=== PATIENT | male | born 1955 | race Caucasian/White ===

== ENCOUNTER 2022-05-13 17:34 | Inpatient (IN) ==
--- NOTE | 2022-05-13 18:22 | CT Scan Report ---
CT head/brain wo con CLINICAL HISTORY: ams Technique: Contiguous axial CT images of the head were acquired from the base of the skull to the [place] without intravenous contrast administration. Images were viewed in brain, subdural and bone [facility]. Automated dose lowering techniques and/or adjustment according to patient size were utilized for this exam. Comparison: None available at the time of this dictation. Findings: Areas of decreased attenuation are present in the periventricular and subcortical white matter bilate rally consistent with small vessel ischemic disease. Generalized cerebral volume loss with commensura te enlargement of the ventricles, sulci, and cisterns is also present. Asymmetric enlargement of the left lateral ventricle occipital horn. The white matter changes may represent focal encephalomalacia from prior infarct. Imaged portions of the paranasal sinuses and mastoid air cells are clear. The orbits appear normal. There are no acute fractures of the calvaria or scalp swelling. Impression: No acute intracranial hemorrhage, no evidence of acute territorial infarction or other acute intracra nial disease process. ACT 112: Negative or not required by law. Electronically signed by: Roc Leggett M.D. 05/13/2022 6:21 PM
[2022-05-13 18:25] LABS: Basophils # (auto) 0.07 K/uL (0-0.2); Eosinophils # (auto) 0.01 K/uL (0-0.50); Eosinophils % (auto) 0.1 %; Hematocrit (blood only) 47.4 % (42.0-52.0); Hemoglobin 16.3 g/dl (14.0-18.0); Immature Granulocytes # (auto) 0.04 K/uL (0.01-0.20); Immature Granulocytes % (auto) 0.6 %; Lymphocytes # (auto) 2.01 K/uL (1.2-3.4); Lymphocytes % (auto) 27.7 %; Mean Corpuscular Hemoglobin 33.3 pg (25.0-34.0); Mean Corpuscular Hgb Conc 34.4 g/dL (32.0-36.0); Mean Corpuscular Volume 96.7 fL (80.0-100.0); Mean Platelet Volume 10.6 fL (9.4-12.4); Monocytes # (auto) 0.57 K/uL (0.11-0.59); Monocytes % (auto) 7.9 %; Neutrophils # (auto) 4.55 K/uL (1.40-6.50); Neutrophils % (auto) 62.7 %; Platelet Count 203 K/uL (130-400); RDW Coefficient of Variation 12.2 % (11.5-14.5); RDW Standard Deviation 44.2 fL (36.4-46.3); White Blood Count 7.25 K/ul (4.8-10.8)
[2022-05-13 18:27] LABS: Base Excess VBG 3.8 mEq/L; HCO3 VBG 29 mmol/L; Oxygen Saturation VBG 65.2 %; PCO2 VBG 46 mmHg (38-50); PO2 VBG 40 mmHg; pH VBG 7.41 (7.36-7.41)
[2022-05-13 18:39] LABS: Acetaminophen < 3 ug/ml (10-30); Salicylate < 3.0 mg/dl (3.0-30)
--- NOTE | 2022-05-13 18:41 | XRay Report ---
XR chest 1V portable CLINICAL HISTORY: ams TECHNIQUE: Single frontal radiograph of the chest was obtained. Comparison: None available at the time of this dictation. FINDINGS: No lines and tubes are seen. The aorta is tortuous. The remainder of the cardiomediastinal silhouette is unremarkable. The lungs are clear. No evidence of pleural effusion or pneumothorax. IMPRESSION: No acute chest disease. ACT 112: Negative or not required by law. Electronically signed by: Roc Leggett M.D. 05/13/2022 6:39 PM
[2022-05-13 18:47] LABS: Alanine Aminotransferase 13 U/L (7-52); Albumin Level 4.6 gm/dl (3.4-5.0); Alkaline Phosphatase 63 U/L (34-104); Anion Gap 11 (3-11); Aspartate Aminotransferase 26 U/L (13-39); BUN Creatinine Ratio 16.3 (10-20); Bilirubin Direct 0.1 mg/dl (0-0.2); Bilirubin,Total 0.8 mg/dl (0.2-1.0); Blood Urea Nitrogen 17 mg/dl (6-23); Calcium 9.8 mg/dl (8.5-10.1); Carbon Dioxide 27 mmol/L (21-32); Chloride 100 mmol/L (98-107); Creatine Kinase 73 U/L (30-223); Est GFR (African American) 85.1 ml/min; Est GFR (Non-African American) 73.4 ml/min; Glucose 87 mg/dl (70-99(Fasting)); Lipase 17 U/L (11-82); Magnesium 2.5 mg/dl (1.7-2.4); Sodium 138 mmol/L (136-145); Total Protein 8.4 gm/dl (6.0-8.3)
[2022-05-13 18:52] LABS: Troponin I High Sensitivity 7.3 pg/ml (0-20)
[2022-05-13 18:56] LABS: INR 1.1 (0.9-1.1); Partial Thromboplastin Ratio 0.9; Partial Thromboplastin Time 25.7 Seconds (21.0-31.0); Prothrombin Time 11.2 Seconds (9.0-12.0)
[2022-05-13 19:46] LABS: Appearance Urine Clear (Clear); Bacteria Urine Automated Negative (Negative); Blood Urine Negative (Negative); Color Urine Dark Yellow; Glucose Urine UA Negative (Negative); Ketones Urine 2+ (Negative); Leukocyte Esterase Urine Negative (Negative); Nitrite Urine Negative (Negative); Protein Urine Trace (Negative); RBC Urine Automated 0-4 /hpf (0-4); Urobilinogen Urine Negative (Negative)
[2022-05-13 19:53] LABS: Bilirubin Urine 1+ (Negative)
[2022-05-13 19:57] LABS: Amphetamines+Metham, Urine Neg (Neg); Barbiturates, Urine Neg (Neg); Benzodiazepine, Urine Neg (Neg); Cocaine, Urine Neg (Neg); MDMA (Ecstacy), Urine Neg (Neg); Methadone, Urine Neg (Neg); Opiate, Urine Neg (Neg); Phencyclidine, Urine Neg (Neg)
--- NOTE | 2022-05-13 20:00 | Emergency Department Note ---
History of Present Illness General Chief complaint: Confusion Stated complaint: NOT LIKE HIMSELF Time Seen by Provider: 05/13/22 17:41 Source: friends History of Present Illness Provider complaint: Altered mental status 67-year-old male presents emergency department for altered mental status. Patient was brought in by his friend. The friend states he has not heard from him in the last week and a half but then went to go visit him today and the patient was acting altered. The friend at bedside states he does not know if he has any medical problems or takes any medications. No reported trauma. Friend states that the patient does not drink alcohol or do drugs. Home Medications Medication Instructions Recorded Confirmed Type No Known Home Medications 05/13/22 05/13/22 History Past Med/Surg History Social History Smoking Status: Former smoker Physical Exam Vital Signs Vital Signs - 24 hr 05/13/22 17:37 05/13/22 17:52 05/13/22 18:02 Temperature 36.4 C L Temperature Source Temporal Artery Scan Pulse Rate 91 H 81 Respiratory Rate 18 Respiratory Effort / Characteristics Non-Labored Respiratory Depth Normal Blood Pressure 180/105 H Blood Pressure [Right Arm] Blood Pressure Mean 130 Blood Pressure Mean [Right Arm] Pulse Oximetry 98 Oxygen Delivery Method Room Air Room Air Sepsis Recent Fever Within 48 Hours No Sepsis New/Unexplained Change in Mental Status No Sepsis Action Taken by Nursing No Action Required 05/13/22 18:03 Temperature Temperature Source Pulse Rate Respiratory Rate Respiratory Effort / Characteristics Respiratory Depth Blood Pressure Blood Pressure [Right Arm] 207/109 H Blood Pressure Mean Blood Pressure Mean [Right Arm] 141 Pulse Oximetry Oxygen Delivery Method Sepsis Recent Fever Within 48 Hours Sepsis New/Unexplained Change in Mental Status Sepsis Action Taken by Nursing Physical Exam GENERAL: Patient is alert but not oriented. HENT: Exam performed. - Head: Normocephalic and atraumatic. - Right Ear: External ear normal. No mastoid tenderness. - Left Ear: External ear normal. No mastoid tenderness. - Mouth/Throat: The oropharynx is clear and moist. No trismus in the jaw. No dental abscesses or uvula swelling. No oropharyngeal exudate or tonsillar abscesses. EYES: Conjunctivae and EOM are normal. Pupils are equal, round, and reactive to light. Right eye exhibits no discharge. Left eye exhibits no discharge. No scleral icterus. NECK: Normal range of motion. Neck supple. No JVD present. No spinous process tenderness present. No rigidity. No tracheal deviation and normal range of motion present. No Brudzinski's sign and no Kernig's sign noted. CV: Normal rate, regular rhythm, normal heart sounds and intact distal pulses. There is no peripheral edema. Palpable radial pulses bue. PULM/CHEST: Effort normal and breath sounds normal. No respiratory distress. No stridor. He has no wheezes. He has no rales. - Chest Wall: He exhibits no tenderness. ABD: The abdomen is soft. He has no distension. No mass is present. There is no tenderness. There is no rebound, no guarding MUSC/SKEL: Normal range of motion. There is no peripheral edema, tenderness or deformity. LYMPH: No cervical adenopathy. NEURO: He is alert but not oriented to person, place, and time. He has normal strength. No cranial nerve deficit or sensory deficit. Coordination and gait normal. GCS eye subscore is 4. GCS verbal subscore is 4. GCS motor subscore is 6. SKIN: Skin is warm and dry. He is not diaphoretic. Course Course 1741: The patient was evaluated in room A12A. A complete history and physical exam was performed Medical Decision Making Laboratory Data Attestation: I reviewed the patient's lab results. 05/13/22 17:58 05/13/22 17:58 Lab Results 05/13/22 05/13/22 05/13/22 Range/Units 17:49 17:58 17:58 WBC 7.25 (4.8-10.8) K/ul RBC 4.90 (4.70-6.10) M/uL Hgb 16.3 (14.0-18.0) g/dl Hct 47.4 (42.0-52.0) % MCV 96.7 (80.0-100.0) fL MCH 33.3 (25.0-34.0) pg MCHC 34.4 (32.0-36.0) g/dL RDW Std Deviation 44.2 (36.4-46.3) fL RDW Coeff of Mireya 12.2 (11.5-14.5) % Plt Count 203 (130-400) K/uL MPV 10.6 (9.4-12.4) fL Immature Gran % (Auto) 0.6 % Neut % (Auto) 62.7 % Lymph % (Auto) 27.7 % [place] % (Auto) 7.9 % Eos % (Auto) 0.1 % Baso % (Auto) 1.0 % Neut # (Auto) 4.55 (1.40-6.50) K/uL Lymph # (Auto) 2.01 (1.2-3.4) K/uL [place] # (Auto) 0.57 (0.11-0.59) K/uL Eos # (Auto) 0.01 (0-0.50) K/uL Baso # (Auto) 0.07 (0-0.2) K/uL Immature Gran # (Auto) 0.04 (0.01-0.20) K/uL PT 11.2 (9.0-12.0) Seconds INR 1.1 (0.9-1.1) APTT 25.7 (21.0-31.0) Seconds PTT Ratio 0.9 VBG pH (7.36-7.41) VBG pCO2 (38-50) mmHg VBG pO2 mmHg VBG HCO3 mmol/L VBG O2 Saturation % VBG Base Excess mEq/L Carboxyhemoglobin % THgb Sodium (136-145) mmol/L Potassium (3.5-5.1) mmol/L Chloride (98-107) mmol/L Carbon Dioxide (21-32) mmol/L Anion Gap (3-11) BUN (6-23) mg/dl Creatinine (0.6-1.4) mg/dl Est Cr Clr Drug Dosing Est GFR ( Amer) ml/min Est GFR (Non-Af Amer) ml/min BUN/Creatinine Ratio (10-20) Glucose (70-99(Fasting)) mg/dl POC Glucose 87 (70-99) mg/dl Calcium (8.5-10.1) mg/dl Magnesium (1.7-2.4) mg/dl Total Bilirubin (0.2-1.0) mg/dl Direct Bilirubin (0-0.2) mg/dl AST (13-39) U/L ALT (7-52) U/L Alkaline Phosphatase (34-104) U/L Ammonia (18-72) umol/L Total Creatine Kinase (30-223) U/L Troponin I High Sens (0-20) pg/ml Total Protein (6.0-8.3) gm/dl Albumin (3.4-5.0) gm/dl Lipase (11-82) U/L Urine Color Urine Appearance (Clear) Urine pH (4.5-7.5) Ur Specific Cook Sta (1.000-1.030) Urine Protein (Negative) Urine Glucose (UA) (Negative) Urine Ketones (Negative) Urine Blood (Negative) Urine Nitrite (Negative) Urine Bilirubin (Negative) Urine Urobilinogen (Negative) Ur Leukocyte Esterase (Negative) Urine WBC (Auto) (0-5) /hpf Urine RBC (Auto) (0-4) /hpf U Hyaline Cast (Auto) (0-5) /lpf U Epithel Cells (Auto) (0-5) /lpf Urine Bacteria (Auto) (Negative) Salicylates (3.0-30) mg/dl Urine Opiates Screen (Neg) Ur Methadone, Qual (Neg) Acetaminophen (10-30) ug/ml Urine Barbiturates (Neg) Ur Phencyclidine (PCP) (Neg) U Amphetamin/Meth Scrn (Neg) MDMA (Ecstasy) Screen (Neg) U Benzodiazepines Scrn (Neg) Ur Cocaine Metabolite (Neg) U Marijuana (THC) Screen (Neg) Ethyl Alcohol mg/dL (<10.0) mg/dl SARS-CoV-2, RNA, NAAT (NEGATIVE) 05/13/22 05/13/22 05/13/22 Range/Units 17:58 17:58 17:58 WBC (4.8-10.8) K/ul RBC (4.70-6.10) M/uL Hgb (14.0-18.0) g/dl Hct (42.0-52.0) % MCV (80.0-100.0) fL MCH (25.0-34.0) pg MCHC (32.0-36.0) g/dL RDW Std Deviation (36.4-46.3) fL RDW Coeff of Mireya (11.5-14.5) % Plt Count (130-400) K/uL MPV (9.4-12.4) fL Immature Gran % (Auto) % Neut % (Auto) % Lymph % (Auto) % [place] % (Auto) % Eos % (Auto) % Baso % (Auto) % Neut # (Auto) (1.40-6.50) K/uL Lymph # (Auto) (1.2-3.4) K/uL [place] # (Auto) (0.11-0.59) K/uL Eos # (Auto) (0-0.50) K/uL Baso # (Auto) (0-0.2) K/uL Immature Gran # (Auto) (0.01-0.20) K/uL PT (9.0-12.0) Seconds INR (0.9-1.1) APTT (21.0-31.0) Seconds PTT Ratio VBG pH (7.36-7.41) VBG pCO2 (38-50) mmHg VBG pO2 mmHg VBG HCO3 mmol/L VBG O2 Saturation % VBG Base Excess mEq/L Carboxyhemoglobin % THgb Sodium 138 (136-145) mmol/L Potassium 4.0 (3.5-5.1) mmol/L Chloride 100 (98-107) mmol/L Carbon Dioxide 27 (21-32) mmol/L Anion Gap 11 (3-11) BUN 17 (6-23) mg/dl Creatinine 1.04 (0.6-1.4) mg/dl Est Cr Clr Drug Dosing Not Reportable Est GFR ( Amer) 85.1 ml/min Est GFR (Non-Af Amer) 73.4 ml/min BUN/Creatinine Ratio 16.3 (10-20) Glucose 87 (70-99(Fasting)) mg/dl POC Glucose (70-99) mg/dl Calcium 9.8 (8.5-10.1) mg/dl Magnesium 2.5 H (1.7-2.4) mg/dl Total Bilirubin 0.8 (0.2-1.0) mg/dl Direct Bilirubin 0.1 (0-0.2) mg/dl AST 26 (13-39) U/L ALT 13 (7-52) U/L Alkaline Phosphatase 63 (34-104) U/L Ammonia 28.0 (18-72) umol/L Total Creatine Kinase 73 (30-223) U/L Troponin I High Sens 7.3 (0-20) pg/ml Total Protein 8.4 H (6.0-8.3) gm/dl Albumin 4.6 (3.4-5.0) gm/dl Lipase 17 (11-82) U/L Urine Color Urine Appearance (Clear) Urine pH (4.5-7.5) Ur Specific Cook Sta (1.000-1.030) Urine Protein (Negative) Urine Glucose (UA) (Negative) Urine Ketones (Negative) Urine Blood (Negative) Urine Nitrite (Negative) Urine Bilirubin (Negative) Urine Urobilinogen (Negative) Ur Leukocyte Esterase (Negative) Urine WBC (Auto) (0-5) /hpf Urine RBC (Auto) (0-4) /hpf U Hyaline Cast (Auto) (0-5) /lpf U Epithel Cells (Auto) (0-5) /lpf Urine Bacteria (Auto) (Negative) Salicylates < 3.0 L (3.0-30) mg/dl Urine Opiates Screen (Neg) Ur Methadone, Qual (Neg) Acetaminophen < 3 L (10-30) ug/ml Urine Barbiturates (Neg) Ur Phencyclidine (PCP) (Neg) U Amphetamin/Meth Scrn (Neg) MDMA (Ecstasy) Screen (Neg) U Benzodiazepines Scrn (Neg) Ur Cocaine Metabolite (Neg) U Marijuana (THC) Screen (Neg) Ethyl Alcohol mg/dL (<10.0) mg/dl SARS-CoV-2, RNA, NAAT (NEGATIVE) 05/13/22 05/13/22 05/13/22 Range/Units 17:58 18:00 18:21 WBC (4.8-10.8) K/ul RBC (4.70-6.10) M/uL Hgb (14.0-18.0) g/dl Hct (42.0-52.0) % MCV (80.0-100.0) fL MCH (25.0-34.0) pg MCHC (32.0-36.0) g/dL RDW Std Deviation (36.4-46.3) fL RDW Coeff of Mireya (11.5-14.5) % Plt Count (130-400) K/uL MPV (9.4-12.4) fL Immature Gran % (Auto) % Neut % (Auto) % Lymph % (Auto) % [place] % (Auto) % Eos % (Auto) % Baso % (Auto) % Neut # (Auto) (1.40-6.50) K/uL Lymph # (Auto) (1.2-3.4) K/uL [place] # (Auto) (0.11-0.59) K/uL Eos # (Auto) (0-0.50) K/uL Baso # (Auto) (0-0.2) K/uL Immature Gran # (Auto) (0.01-0.20) K/uL PT (9.0-12.0) Seconds INR (0.9-1.1) APTT (21.0-31.0) Seconds PTT Ratio VBG pH 7.41 (7.36-7.41) VBG pCO2 46 (38-50) mmHg VBG pO2 40 mmHg VBG HCO3 29 mmol/L VBG O2 Saturation 65.2 % VBG Base Excess 3.8 mEq/L Carboxyhemoglobin % THgb Sodium (136-145) mmol/L Potassium (3.5-5.1) mmol/L Chloride (98-107) mmol/L Carbon Dioxide (21-32) mmol/L Anion Gap (3-11) BUN (6-23) mg/dl Creatinine (0.6-1.4) mg/dl Est Cr Clr Drug Dosing Est GFR ( Amer) ml/min Est GFR (Non-Af Amer) ml/min BUN/Creatinine Ratio (10-20) Glucose (70-99(Fasting)) mg/dl POC Glucose (70-99) mg/dl Calcium (8.5-10.1) mg/dl Magnesium (1.7-2.4) mg/dl Total Bilirubin (0.2-1.0) mg/dl Direct Bilirubin (0-0.2) mg/dl AST (13-39) U/L ALT (7-52) U/L Alkaline Phosphatase (34-104) U/L Ammonia (18-72) umol/L Total Creatine Kinase (30-223) U/L Troponin I High Sens (0-20) pg/ml Total Protein (6.0-8.3) gm/dl Albumin (3.4-5.0) gm/dl Lipase (11-82) U/L Urine Color Urine Appearance (Clear) Urine pH (4.5-7.5) Ur Specific Cook Sta (1.000-1.030) Urine Protein (Negative) Urine Glucose (UA) (Negative) Urine Ketones (Negative) Urine Blood (Negative) Urine Nitrite (Negative) Urine Bilirubin (Negative) Urine Urobilinogen (Negative) Ur Leukocyte Esterase (Negative) Urine WBC (Auto) (0-5) /hpf Urine RBC (Auto) (0-4) /hpf U Hyaline Cast (Auto) (0-5) /lpf U Epithel Cells (Auto) (0-5) /lpf Urine Bacteria (Auto) (Negative) Salicylates (3.0-30) mg/dl Urine Opiates Screen (Neg) Ur Methadone, Qual (Neg) Acetaminophen (10-30) ug/ml Urine Barbiturates (Neg) Ur Phencyclidine (PCP) (Neg) U Amphetamin/Meth Scrn (Neg) MDMA (Ecstasy) Screen (Neg) U Benzodiazepines Scrn (Neg) Ur Cocaine Metabolite (Neg) U Marijuana (THC) Screen (Neg) Ethyl Alcohol mg/dL < 10.0 (<10.0) mg/dl SARS-CoV-2, RNA, NAAT NEGATIVE (NEGATIVE) 05/13/22 05/13/22 05/13/22 Range/Units 19:22 19:22 20:31 WBC (4.8-10.8) K/ul RBC (4.70-6.10) M/uL Hgb (14.0-18.0) g/dl Hct (42.0-52.0) % MCV (80.0-100.0) fL MCH (25.0-34.0) pg MCHC (32.0-36.0) g/dL RDW Std Deviation (36.4-46.3) fL RDW Coeff of Mireya (11.5-14.5) % Plt Count (130-400) K/uL MPV (9.4-12.4) fL Immature Gran % (Auto) % Neut % (Auto) % Lymph % (Auto) % [place] % (Auto) % Eos % (Auto) % Baso % (Auto) % Neut # (Auto) (1.40-6.50) K/uL Lymph # (Auto) (1.2-3.4) K/uL [place] # (Auto) (0.11-0.59) K/uL Eos # (Auto) (0-0.50) K/uL Baso # (Auto) (0-0.2) K/uL Immature Gran # (Auto) (0.01-0.20) K/uL PT (9.0-12.0) Seconds INR (0.9-1.1) APTT (21.0-31.0) Seconds PTT Ratio VBG pH (7.36-7.41) VBG pCO2 (38-50) mmHg VBG pO2 mmHg VBG HCO3 mmol/L VBG O2 Saturation % VBG Base Excess mEq/L Carboxyhemoglobin 2.6 % THgb Sodium (136-145) mmol/L Potassium (3.5-5.1) mmol/L Chloride (98-107) mmol/L Carbon Dioxide (21-32) mmol/L Anion Gap (3-11) BUN (6-23) mg/dl Creatinine (0.6-1.4) mg/dl Est Cr Clr Drug Dosing Est GFR ( Amer) ml/min Est GFR (Non-Af Amer) ml/min BUN/Creatinine Ratio (10-20) Glucose (70-99(Fasting)) mg/dl POC Glucose (70-99) mg/dl Calcium (8.5-10.1) mg/dl Magnesium (1.7-2.4) mg/dl Total Bilirubin (0.2-1.0) mg/dl Direct Bilirubin (0-0.2) mg/dl AST (13-39) U/L ALT (7-52) U/L Alkaline Phosphatase (34-104) U/L Ammonia (18-72) umol/L Total Creatine Kinase (30-223) U/L Troponin I High Sens (0-20) pg/ml Total Protein (6.0-8.3) gm/dl Albumin (3.4-5.0) gm/dl Lipase (11-82) U/L Urine Color Dark Yellow Urine Appearance Clear (Clear) Urine pH 5.0 (4.5-7.5) Ur Specific Cook Sta 1.030 (1.000-1.030) Urine Protein Trace H (Negative) Urine Glucose (UA) Negative (Negative) Urine Ketones 2+ H (Negative) Urine Blood Negative (Negative) Urine Nitrite Negative (Negative) Urine Bilirubin 1+ H (Negative) Urine Urobilinogen Negative (Negative) Ur Leukocyte Esterase Negative (Negative) Urine WBC (Auto) 1-5 (0-5) /hpf Urine RBC (Auto) 0-4 (0-4) /hpf U Hyaline Cast (Auto) 1-5 (0-5) /lpf U Epithel Cells (Auto) 10-20 H (0-5) /lpf Urine Bacteria (Auto) Negative (Negative) Salicylates (3.0-30) mg/dl Urine Opiates Screen Neg (Neg) Ur Methadone, Qual Neg (Neg) Acetaminophen (10-30) ug/ml Urine Barbiturates Neg (Neg) Ur Phencyclidine (PCP) Neg (Neg) U Amphetamin/Meth Scrn Neg (Neg) MDMA (Ecstasy) Screen Neg (Neg) U Benzodiazepines Scrn Neg (Neg) Ur Cocaine Metabolite Neg (Neg) U Marijuana (THC) Screen Neg (Neg) Ethyl Alcohol mg/dL (<10.0) mg/dl SARS-CoV-2, RNA, NAAT (NEGATIVE) Imaging Data Attestation: I personally reviewed and interpreted this imaging study as follows: My Impression: CT head: No [facility] Radiologist's Impression: Chest X-Ray 05/13/22 17:45 XR chest 1V portable CLINICAL HISTORY: ams TECHNIQUE: Single frontal radiograph of the chest was obtained. Comparison: None available at the time of this dictation. FINDINGS: No lines and tubes are seen. The aorta is tortuous. The remainder of the cardiom ediastinal silhouette is unremarkable. The lungs are clear. No evidence of pleural effusion or pneumothorax. IMPRESSION: No acute chest disease. ACT 112: Negative or not required by law. Electronically signed by: Roc Leggett M.D. 05/13/2022 6:[address] 05/13/22 17:45 CT head/brain wo con CLINICAL HISTORY: ams Technique: Contiguous axial CT images of the head were acquired from the base of the skull to the vertex without intravenous contrast administration. Images were viewed in brain, subdural and bone windows. Automated dose lowering techniques and/or adjustment according to patient size were utilized for this exam. Comparison: None available at the time of this dictation. Findings: Areas of decreased attenuation are present in the periventricular and subco rtical white matter bilaterally consistent with small vessel ischemic disease. Generalized cerebral volume loss with commensurate enlargement of the ventricles, sulci, and cisterns is also present. Asymmetric enlargement of the left lateral ventricle occipital horn. The white matter changes may represent focal encephalomalacia from prior infarct. Imaged portions of the paranasal sinuses and mastoid air cells are clear. The orbits appear normal. There are no acute fractures of the calvaria or scalp swelling. Impression: No acute intracranial hemorrhage, no evidence of acute territorial infarction or other acute intracranial disease process. ACT 112: Negative or not required by law. Electronically signed by: Roc Leggett M.D. 05/13/2022 6:21 PM ECG Data Attestation: I personally reviewed and interpreted this ECG as follows: Indication: + altered mental status Rate (beats per minute): 73 Rhythm: + normal sinus ECG Intervals/blocks: + Normal QRS, + Normal DE and + Normal QT-c ECG ST segments: + Normal ST segments MDM Narrative Cardiac monitoring: An order was placed for continuous cardiac monitoring. The monitor shows a rate of 70 with sinus rhythm interpreted by me Vital signs stable. Labs within normal limits including normal white blood cell count normal hemoglobin normal coagulation studies VBG within normal limits. Electrolytes kidney function ammonia and troponin urine drug screen alcohol and CT head within normal limits. Patient is alert but still not oriented. Thought that the patient could have had a possible stroke. [facility] Impression & Plan Altered mental status Discharge Plan Visit Data Chief Complaint: Confusion Stated Complaint: NOT LIKE HIMSELF ED Provider: Fabio Saucedo Discharge Problem: Altered mental status Patient Disposition: Admitted As Inpatient Forms Stand Alone Forms: My ReturnHauler Prescriptions Prescriptions: No Action No Known Home Medications Referrals Referrals: PCP,NO [Primary Care Provider] -
[2022-05-13] MEDS ORDERED: THIAMINE HCL 500 MG in SODIUM CHLORIDE 0.9% 50 ML IV STA (21:02)
[2022-05-13] MEDS ORDERED: PHARMACIST DISCHARGE MED REC CONSULT PRN (23:35)
[2022-05-13] MEDS ORDERED: POLYETHYLENE (MIRALAX) 17 GM PACK PO PRN (23:35)
[2022-05-13] MEDS ORDERED: SODIUM CHLORIDE 0.9% 1000ML 1,000 ML IV SCH (23:35)
[2022-05-13] MEDS ORDERED: NITROGLYCERIN SL 0.4 MG/TAB TAB SL PRN (23:35)
[2022-05-13] MEDS ORDERED: LABETALOL HCL IV 5 MG/ML 20ML IV PRN (23:35)
[2022-05-13] MEDS ORDERED: ACETAMINOPHEN 325 MG TAB PO PRN (23:35)
[2022-05-13] MEDS ORDERED: Patient's ALLERGY Info needs ENTERED SCH (23:45)
--- NOTE | 2022-05-13 23:46 | History and Physical Report ---
DATE OF ADMISSION: 05/13/2022. CHIEF COMPLAINT: Confusion. HISTORY OF PRESENT ILLNESS: This is a 67-year-old male with no known past medical history, was brought in by a friend because of confusion. The patient lives alone. Friend visits him sometimes every weekend, sometimes other weekend. He did not hear him for last 10 days, so he went to check on him today and he was found to be very confused. The patient was brought in here. As per the ER, he was able to ambulate into the ER. The patient is obeying simple commands, but when asking questions, he is answering something else, but when we say his name he says he has yes, when we tells his date of he says yes and seems he knows that is in the hospital. But when asking questions, his speech is somewhat mumbled and also answering something tangentially. His blood pressure is somewhat running high. The friend does not know what kind of medical problems he has and what medications he takes. 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 His family is only his 90-year-old mother and sister. The friend does not know where the sister lives, but one of his friends is going to call his mother and let her know what is happening. As per the friend, mother is 90-year-old, but she is doing okay.Could not get any history from the patient currently. As per the friend, the patient does not smoke, alcohol very rarely, no drug use. His systolic blood pressure is running 200s in the ER. ALLERGIES: Unknown at this time. PAST MEDICAL HISTORY: Unknown. PAST SURGICAL HISTORY: Unknown. MEDICATIONS: Unknown. FAMILY HISTORY: Unknown. SOCIAL HISTORY: Does not smoke. No alcohol as per the friend. REVIEW OF SYSTEMS: Could not get at this time. PHYSICAL EXAMINATION: GENERAL: The patient is alert and awake. No facial droop. Speech is somewhat mumbled and also not making sense, but seems to understand the questions. VITAL SIGNS: Temperature 36.4, pulse 81, respiratory rate 18, blood pressure 207/109, oxygen 98% on room air. HEENT: Pupils equal, round and reactive to light. Oral mucosa moist. NECK: No JVD. No neck masses. CARDIOVASCULAR: S1 and S2 heard. Regular rate and rhythm. No murmur, no gallop. RESPIRATORY SYSTEM: Normal AP diameter. No accessory muscle use. No wheezing, no crackles. ABDOMEN: Soft, bowel sounds present, nontender, no distention. CENTRAL NERVOUS SYSTEM: Alert and awake. No obvious facial droop. Speech is somewhat mumbled, but answers tangentially, but seems to understand the questions, obeys simple commands. Power is seemed to be 5/5 in all extremities. Could not do complete CASHIER GREETER exam as the patient is somewhat difficult to understand. EXTREMITIES: No edema, no erythema. LABORATORY DATA: WBC 7.2, hemoglobin 16.3, hematocrit 47.4, platelets 203. PT 11.2, INR 1.1, APTT 25.7. Venous blood gas, pH of 7.41, pCO2 of 46. Carboxyhemoglobin pending. Sodium 138, potassium 4, chloride 100, bicarb 27, BUN 17, creatinine 1.04, serum glucose 87, calcium 9.8, magnesium 2.5, total bilirubin 0.8, direct bilirubin 0.1, AST 26, ALT 13, alkaline phosphatase 63. Ammonia 28. Total creatinine kinase 73. Troponin I high sensitivity 7.3. Albumin 4.6. Urinalysis, +2 ketones. Urine bacteria negative. Urine drug screen, salicylate less than 3, acetaminophen less than 3. Other drug screens are negative. Ethyl alcohol less than 10. SARS-CoV-2 rapid test negative. IMAGING DATA: CT of the head without contrast, no acute findings. Chest x-ray, no acute disease. EKG, normal sinus rhythm at a rate of 73, no acute ST changes seen. ASSESSMENT AND PLAN: This 67-year-old male was brought in by Friend because of confusion. 1. Confusion Obeys simple commands, but otherwise speaking tangentially in low volumes. Blood pressure is somewhat high. Does not know what medications he is on, what kind of medications he takes. He lives alone, was found confused by his friend. Does not have family except for the sister, whom the friend does not know where she lives and a friend is trying to contact his mother, who is 90-year-old. Except for blood pressure running high, labs are all unremarkable. CT head unremarkable. Chest x-ray unremarkable. Drug screen is unremarkable. Carboxyhemoglobin levels are 2.6 ABG is okay. Ammonia level okay. As per friend, there is no smoking, alcohol, or drug use. , we will do stroke workup with MRI scan, CT angio of the head and neck, echocardiogram, speech evaluation, neuro evaluation in the a.m. We will give a dose of thiamine. We will check also vitamin B12, thiamine levels and folic acid levels and RPR levels. We will also do EEG.Will get lipid profile and hba1c levels. Closely monitor in tele floor. N.p.o. except meds until seen by speech. IV fluids. Await neuro input. 2. Hypertension: Does not know whether he has a history of hypertension or what kind of medications he is taking on. We will place on IV labetalol 10 mg q.4h. p.r.n. for systolic blood pressure greater than 180, with holding parameters. And monitor BP. 3. Deep venous thrombosis prophylaxis: Sequential compression devices for now. DISPOSITION: Closely monitor in tele floor. We will keep him at full code for now. Job ID: [id number] [id number]
[2022-05-14] MEDS ORDERED: OPTIRAY 320 500ml IV ONE (01:41)
--- NOTE | 2022-05-14 02:12 | CT Scan Report ---
Exam(s): CTA HEAD With Contrast IV Amt: 114 ML OPTIRAY 320 EXAM: CT Angiography Head With Intravenous Contrast CLINICAL HISTORY: Reason for exam: cva?. TECHNIQUE: Axial computed tomographic angiography images of the head with intravenous contrast. Automated exposure control was utilized for the study. A dose lowering technique was utilized adhering to the principles of ALARA. MIP reconstructed images were created and reviewed. CONTRAST: Patient received 114 ML OPTIRAY 320 of IV contrast COMPARISON: No relevant prior studies available. FINDINGS: Right internal carotid artery: No acute findings. Intracranial segment is patent with no significant stenosis. No aneurysm. Right anterior cerebral artery: Unremarkable. No occlusion or significant stenosis. No aneurysm. Right middle cerebral artery: Unremarkable. No occlusion or significant stenosis. No aneurysm. Right posterior cerebral artery: Unremarkable. No occlusion or significant stenosis. No aneurysm. Right vertebral artery: Unremarkable as visualized. Left internal carotid artery: The left internal carotid artery demonstrates atherosclerotic changes without high-grade stenosis or occlusion. No aneurysm. Left anterior cerebral artery: Unremarkable. No occlusion or significant stenosis. No aneurysm. Left middle cerebral artery: There is an abrupt cut off of the distal left M1 segment (series 3; image 82 and series 300; image 31). There is reconstitution of several proximal M2 branches. However, there is asymmetric decreased perfusion to the left MCA territory. No aneurysm. Left posterior cerebral artery: Unremarkable. No occlusion or significant stenosis. No aneurysm. Left vertebral artery: Unremarkable as visualized. Basilar artery: Unremarkable. No occlusion or significant stenosis. No aneurysm. Dural sinuses/cerebral veins: The visualized dural sinuses are unremarkable. Bones/joints: The posterior left middle cervical territory in the left parietal region is slightly heterogeneous. No significant mass effect. Please see the noncontrast examination for further details. IMPRESSION: There is an abrupt cut off of the distal left M1 segment (series 3; image 82 and series 300; image 31). There is reconstitution of several proximal M2 branches. However, there is asymmetric decreased perfusion to the left MCA territory. Suspect embolic thrombus to the distal left M1 segment. Communications: Call Doctor Acute arterial occlusion/ critical stenosis Electronically signed by: Carson Haynes MD 05/14/22 02:11 AM
--- NOTE | 2022-05-14 02:18 | CT Scan Report ---
Exam(s): CTA NECK With Contrast IV Amt: 114 ml optiray 320 EXAM: CT Angiography Neck With Intravenous Contrast CLINICAL HISTORY: Reason for exam: cva?. TECHNIQUE: Routine carotid CT angiography protocol was performed with intravenous contrast. NASCET criteria using the distal ICAs for comparison were used for evaluation of stenoses. Automated exposure control was utilized for the study. A dose lowering technique was utilized adhering to the principles of ALARA. MIP reconstructed images were created and reviewed. CONTRAST: Patient received 114 ml optiray 320 of IV contrast COMPARISON: None. FINDINGS: VASCULATURE: Right common carotid artery: Intimal hyperplasia of the right common carotid artery without focal stenosis, dissection or occlusion. Right internal carotid artery: Atherosclerotic changes of the proximal right internal carotid artery, extending to the carotid bifurcation. No significant stenosis. The mid to distal internal carotid artery is patent. No dissection. Right external carotid artery: Unremarkable. No occlusion. Right vertebral artery: Approximately 50% ostial stenosis. No occlusion or significant stenosis. No dissection. Left common carotid artery: Intimal hyperplasia of the left common carotid artery without focal stenosis, dissection or occlusion. Left internal carotid artery: Athetotic calcification of the proximal left internal carotid artery, extending to the carotid bifurcation. No stenosis by NASCET criteria. The mid to distal left internal carotid artery is patent. No dissection. Left external carotid artery: Unremarkable. No occlusion. Left vertebral artery: Unremarkable. No occlusion or significant stenosis. No dissection. Brachiocephalic and subclavian arteries: There is a normal branching pattern of the proximal great vessels which are patent without significant ostial stenosis. Aorta: Athetotic calcification of the aortic arch. No dissection or aneurysm. NECK: Bones/joints: Degenerative changes of the cervical spine. No acute osseous abnormality. Soft tissues: Unremarkable. Lung apices: The lung apices demonstrate no significant acute abnormality. CAROTID STENOSIS REFERENCE USING NASCET CRITERIA: % ICA stenosis = (1 - narrowest ICA diameter/diameter of distal cervical ICA) x 100. Mild - <50% stenosis. Moderate - 50-69% stenosis. Severe - 70-94% stenosis. Near occlusion - 95-99% stenosis. Occluded - 100% stenosis. IMPRESSION: 1. Atherosclerotic calcification of the carotid bifurcations bilaterally without stenosis by NASCET criteria. The common and internal carotid arteries are otherwise unremarkable bilaterally. 2. Mild to moderate ostial stenosis of the right vertebral artery. The vertebral arteries are otherwise patent bilaterally. Electronically signed by: Carson Haynes MD 05/14/22 02:17 AM
[2022-05-14] MEDS ORDERED: STROKE PATIENT DISCHARGE STA (03:14)
--- NOTE | 2022-05-14 03:19 | Discharge Summary ---
Date of Service May 14, 2022 Admission HPI Per Admitting Provider This is a 67-year-old male with no known past medical history, was brought in by a friend because of confusion. The patient lives alone. Friend visits him sometimes every weekend, sometimes other weekend. He did not hear him for last 10 days, so he went to check on him today and he was found to be very confused. The patient was brought in here. As per the ER, he was able to ambulate into the ER. The patient is obeying simple commands, but when asking questions, he is answering something else, but when we say his name he says he has yes, when we tells his date of he says yes and seems he knows that is in the hospital. But when asking questions, his speech is somewhat mumbled and also answering something tangentially. His blood pressure is somewhat running high. The friend does not know what kind of medical problems he has and what medications he takes. 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 His family is only his 90-year-old mother and sister. The friend does not know where the sister lives, but one of his friends is going to call his mother and let her know what is happening. As per the friend, mother is 90-year-old, but she is doing okay.Could not get any history from the patient currently. As per the friend, the patient does not smoke, alcohol very rarely, no drug use. His systolic blood pressure is running 200s in the ER. Admission Exam Per Admitting Provider GENERAL: The patient is alert and awake. No facial droop. Speech is somewhat mumbled and also not making sense, but seems to understand the questions. VITAL SIGNS: Temperature 36.4, pulse 81, respiratory rate 18, blood pressure 207/109, oxygen 98% on room air. HEENT: Pupils equal, round and reactive to light. Oral mucosa moist. NECK: No JVD. No neck masses. CARDIOVASCULAR: S1 and S2 heard. Regular rate and rhythm. No murmur, no gallop. RESPIRATORY SYSTEM: Normal AP diameter. No accessory muscle use. No wheezing, no crackles. ABDOMEN: Soft, bowel sounds present, nontender, no distention. CENTRAL NERVOUS SYSTEM: Alert and awake. No obvious facial droop. Speech is somewhat mumbled, but answers tangentially, but seems to understand the questions, obeys simple commands. Power is seemed to be 5/5 in all extremities. Could not do complete [facility] [employer] exam as the patient is somewhat difficul t to understand. EXTREMITIES: No edema, no erythema. Principal Diagnosis Confusion Discharge Data Allergies Allergy/AdvReac Type Severity Reaction Status Date / Time Unable to Assess Allergy Unverified 05/14/22 00:07 Consultations 05/13/22 20:14 ED Decision to Admit Stat 05/14/22 08:00 Consult Neurology Routine Procedures Performed Laboratory Results - last 24 hr 05/13/22 05/13/22 05/13/22 17:49 17:58 17:58 WBC 7.25 RBC 4.90 Hgb 16.3 Hct 47.4 MCV 96.7 MCH 33.3 MCHC 34.4 RDW Std Deviation 44.2 RDW Coeff of Mireya 12.2 Plt Count 203 MPV 10.6 Immature Gran % (Auto) 0.6 Neut % (Auto) 62.7 Lymph % (Auto) 27.7 [place] % (Auto) 7.9 Eos % (Auto) 0.1 Baso % (Auto) 1.0 Neut # (Auto) 4.55 Lymph # (Auto) 2.01 [place] # (Auto) 0.57 Eos # (Auto) 0.01 Baso # (Auto) 0.07 Immature Gran # (Auto) 0.04 PT 11.2 INR 1.1 APTT 25.7 PTT Ratio 0.9 VBG pH VBG pCO2 VBG pO2 VBG HCO3 VBG O2 Saturation VBG Base Excess Carboxyhemoglobin Sodium Potassium Chloride Carbon Dioxide Anion Gap BUN Creatinine Est Cr Clr Drug Dosing Est GFR ( Amer) Est GFR (Non-Af Amer) BUN/Creatinine Ratio Glucose POC Glucose 87 Calcium Magnesium Total Bilirubin Direct Bilirubin AST ALT Alkaline Phosphatase Ammonia Total Creatine Kinase Troponin I High Sens Total Protein Albumin Lipase Urine Color Urine Appearance Urine pH Ur Specific [place] Urine Protein Urine Glucose (UA) Urine Ketones Urine Blood Urine Nitrite Urine Bilirubin Urine Urobilinogen Ur Leukocyte Esterase Urine WBC (Auto) Urine RBC (Auto) U Hyaline Cast (Auto) U Epithel Cells (Auto) Urine Bacteria (Auto) Salicylates Urine Opiates Screen Ur Methadone, Qual Acetaminophen Urine Barbiturates Ur Phencyclidine (PCP) U Amphetamin/Meth Scrn MDMA (Ecstasy) Screen U Benzodiazepines Scrn Ur Cocaine Metabolite U Marijuana (THC) Screen Ethyl Alcohol mg/dL SARS-CoV-2, RNA, NAAT 05/13/22 05/13/22 05/13/22 17:58 17:58 17:58 WBC RBC Hgb Hct MCV MCH MCHC RDW Std Deviation RDW Coeff of Mireya Plt Count MPV Immature Gran % (Auto) Neut % (Auto) Lymph % (Auto) [place] % (Auto) Eos % (Auto) Baso % (Auto) Neut # (Auto) Lymph # (Auto) [place] # (Auto) Eos # (Auto) Baso # (Auto) Immature Gran # (Auto) PT INR APTT PTT Ratio VBG pH VBG pCO2 VBG pO2 VBG HCO3 VBG O2 Saturation VBG Base Excess Carboxyhemoglobin Sodium 138 Potassium 4.0 Chloride 100 Carbon Dioxide 27 Anion Gap 11 BUN 17 Creatinine 1.04 Est Cr Clr Drug Dosing Not Reportable Est GFR ( Amer) 85.1 Est GFR (Non-Af Amer) 73.4 BUN/Creatinine Ratio 16.3 Glucose 87 POC Glucose Calcium 9.8 Magnesium 2.5 H Total Bilirubin 0.8 Direct Bilirubin 0.1 AST 26 ALT 13 Alkaline Phosphatase 63 Ammonia 28.0 Total Creatine Kinase 73 Troponin I High Sens 7.3 Total Protein 8.4 H Albumin 4.6 Lipase 17 Urine Color Urine Appearance Urine pH Ur Specific [place] Urine Protein Urine Glucose (UA) Urine Ketones Urine Blood Urine Nitrite Urine Bilirubin Urine Urobilinogen Ur Leukocyte Esterase Urine WBC (Auto) Urine RBC (Auto) U Hyaline Cast (Auto) U Epithel Cells (Auto) Urine Bacteria (Auto) Salicylates < 3.0 L Urine Opiates Screen Ur Methadone, Qual Acetaminophen < 3 L Urine Barbiturates Ur Phencyclidine (PCP) U Amphetamin/Meth Scrn MDMA (Ecstasy) Screen U Benzodiazepines Scrn Ur Cocaine Metabolite U Marijuana (THC) Screen Ethyl Alcohol mg/dL SARS-CoV-2, RNA, NAAT 05/13/22 05/13/22 05/13/22 17:58 18:00 18:21 WBC RBC Hgb Hct MCV MCH MCHC RDW Std Deviation RDW Coeff of Mireya Plt Count MPV Immature Gran % (Auto) Neut % (Auto) Lymph % (Auto) [place] % (Auto) Eos % (Auto) Baso % (Auto) Neut # (Auto) Lymph # (Auto) [place] # (Auto) Eos # (Auto) Baso # (Auto) Immature Gran # (Auto) PT INR APTT PTT Ratio VBG pH 7.41 VBG pCO2 46 VBG pO2 40 VBG HCO3 29 VBG O2 Saturation 65.2 VBG Base Excess 3.8 Carboxyhemoglobin Sodium Potassium Chloride Carbon Dioxide Anion Gap BUN Creatinine Est Cr Clr Drug Dosing Est GFR ( Amer) Est GFR (Non-Af Amer) BUN/Creatinine Ratio Glucose POC Glucose Calcium Magnesium Total Bilirubin Direct Bilirubin AST ALT Alkaline Phosphatase Ammonia Total Creatine Kinase Troponin I High Sens Total Protein Albumin Lipase Urine Color Urine Appearance Urine pH Ur Specific [place] Urine Protein Urine Glucose (UA) Urine Ketones Urine Blood Urine Nitrite Urine Bilirubin Urine Urobilinogen Ur Leukocyte Esterase Urine WBC (Auto) Urine RBC (Auto) U Hyaline Cast (Auto) U Epithel Cells (Auto) Urine Bacteria (Auto) Salicylates Urine Opiates Screen Ur Methadone, Qual Acetaminophen Urine Barbiturates Ur Phencyclidine (PCP) U Amphetamin/Meth Scrn MDMA (Ecstasy) Screen U Benzodiazepines Scrn Ur Cocaine Metabolite U Marijuana (THC) Screen Ethyl Alcohol mg/dL < 10.0 SARS-CoV-2, RNA, NAAT NEGATIVE 05/13/22 05/13/22 05/13/22 19:22 19:22 20:31 WBC RBC Hgb Hct MCV MCH MCHC RDW Std Deviation RDW Coeff of Mireya Plt Count MPV Immature Gran % (Auto) Neut % (Auto) Lymph % (Auto) [place] % (Auto) Eos % (Auto) Baso % (Auto) Neut # (Auto) Lymph # (Auto) [place] # (Auto) Eos # (Auto) Baso # (Auto) Immature Gran # (Auto) PT INR APTT PTT Ratio VBG pH VBG pCO2 VBG pO2 VBG HCO3 VBG O2 Saturation VBG Base Excess Carboxyhemoglobin 2.6 Sodium Potassium Chloride Carbon Dioxide Anion Gap BUN Creatinine Est Cr Clr Drug Dosing Est GFR ( Amer) Est GFR (Non-Af Amer) BUN/Creatinine Ratio Glucose POC Glucose Calcium Magnesium Total Bilirubin Direct Bilirubin AST ALT Alkaline Phosphatase Ammonia Total Creatine Kinase Troponin I High Sens Total Protein Albumin Lipase Urine Color Dark Yellow Urine Appearance Clear Urine pH 5.0 Ur Specific [place] 1.030 Urine Protein Trace H Urine Glucose (UA) Negative Urine Ketones 2+ H Urine Blood Negative Urine Nitrite Negative Urine Bilirubin 1+ H Urine Urobilinogen Negative Ur Leukocyte Esterase Negative Urine WBC (Auto) 1-5 Urine RBC (Auto) 0-4 U Hyaline Cast (Auto) 1-5 U Epithel Cells (Auto) 10-20 H Urine Bacteria (Auto) Negative Salicylates Urine Opiates Screen Neg Ur Methadone, Qual Neg Acetaminophen Urine Barbiturates Neg Ur Phencyclidine (PCP) Neg U Amphetamin/Meth Scrn Neg MDMA (Ecstasy) Screen Neg U Benzodiazepines Scrn Neg Ur Cocaine Metabolite Neg U Marijuana (THC) Screen Neg Ethyl Alcohol mg/dL SARS-CoV-2, RNA, NAAT Laboratory Results WBC 7.25 K/ul (4.8-10.8) 05/13/22 17:58 RBC 4.90 M/uL (4.70-6.10) 05/13/22 17:58 Hgb 16.3 g/dl (14.0-18.0) 05/13/22 17:58 Hct 47.4 % (42.0-52.0) 05/13/22 17:58 MCV 96.7 fL (80.0-100.0) 05/13/22 17:58 MCH 33.3 pg (25.0-34.0) 05/13/22 17:58 MCHC 34.4 g/dL (32.0-36.0) 05/13/22 17:58 RDW Std Deviation 44.2 fL (36.4-46.3) 05/13/22 17:58 RDW Coeff of Mireya 12.2 % (11.5-14.5) 05/13/22 17:58 Plt Count 203 K/uL (130-400) 05/13/22 17:58 MPV 10.6 fL (9.4-12.4) 05/13/22 17:58 Immature Gran % (Auto) 0.6 % 05/13/22 17:58 Neut % (Auto) 62.7 % 05/13/22 17:58 Lymph % (Auto) 27.7 % 05/13/22 17:58 [place] % (Auto) 7.9 % 05/13/22 17:58 Eos % (Auto) 0.1 % 05/13/22 17:58 Baso % (Auto) 1.0 % 05/13/22 17:58 Neut # (Auto) 4.55 K/uL (1.40-6.50) 05/13/22 17:58 Lymph # (Auto) 2.01 K/uL (1.2-3.4) 05/13/22 17:58 [place] # (Auto) 0.57 K/uL (0.11-0.59) 05/13/22 17:58 Eos # (Auto) 0.01 K/uL (0-0.50) 05/13/22 17:58 Baso # (Auto) 0.07 K/uL (0-0.2) 05/13/22 17:58 Immature Gran # (Auto) 0.04 K/uL (0.01-0.20) 05/13/22 17:58 PT 11.2 Seconds (9.0-12.0) 05/13/22 17:58 INR 1.1 (0.9-1.1) 05/13/22 17:58 APTT 25.7 Seconds (21.0-31.0) 05/13/22 17:58 PTT Ratio 0.9 05/13/22 17:58 VBG pH 7.41 (7.36-7.41) 05/13/22 18:21 VBG pCO2 46 mmHg (38-50) 05/13/22 18:21 VBG pO2 40 mmHg 05/13/22 18:21 VBG HCO3 29 mmol/L 05/13/22 18:21 VBG O2 Saturation 65.2 % 05/13/22 18:21 VBG Base Excess 3.8 mEq/L 05/13/22 18:21 Carboxyhemoglobin 2.6 % THgb 05/13/22 20:31 Sodium 138 mmol/L (136-145) 05/13/22 17:58 Potassium 4.0 mmol/L (3.5-5.1) 05/13/22 17:58 Chloride 100 mmol/L (98-107) 05/13/22 17:58 Carbon Dioxide 27 mmol/L (21-32) 05/13/22 17:58 Anion Gap 11 (3-11) 05/13/22 17:58 BUN 17 mg/dl (6-23) 05/13/22 17:58 Creatinine 1.04 mg/dl (0.6-1.4) 05/13/22 17:58 Est Cr Clr Drug Dosing Not Reportable 05/13/22 17:58 Est GFR ( Amer) 85.1 ml/min 05/13/22 17:58 Est GFR (Non-Af Amer) 73.4 ml/min 05/13/22 17:58 BUN/Creatinine Ratio 16.3 (10-20) 05/13/22 17:58 Glucose 87 mg/dl (70-99(Fasting)) 05/13/22 17:58 POC Glucose 87 mg/dl (70-99) 05/13/22 17:49 Calcium 9.8 mg/dl (8.5-10.1) 05/13/22 17:58 Magnesium 2.5 mg/dl (1.7-2.4) H 05/13/22 17:58 Total Bilirubin 0.8 mg/dl (0.2-1.0) 05/13/22 17:58 Direct Bilirubin 0.1 mg/dl (0-0.2) 05/13/22 17:58 AST 26 U/L (13-39) 05/13/22 17:58 ALT 13 U/L (7-52) 05/13/22 17:58 Alkaline Phosphatase 63 U/L (34-104) 05/13/22 17:58 Ammonia 28.0 umol/L (18-72) 05/13/22 17:58 Total Creatine Kinase 73 U/L (30-223) 05/13/22 17:58 Troponin I High Sens 7.3 pg/ml (0-20) 05/13/22 17:58 Total Protein 8.4 gm/dl (6.0-8.3) H 05/13/22 17:58 Albumin 4.6 gm/dl (3.4-5.0) 05/13/22 17:58 Lipase 17 U/L (11-82) 05/13/22 17:58 Urine Color Dark Yellow 05/13/22 19:22 Urine Appearance Clear (Clear) 05/13/22 19:22 Urine pH 5.0 (4.5-7.5) 05/13/22 19:22 Ur Specific [place] 1.030 (1.000-1.030) 05/13/22 19:22 Urine Protein Trace (Negative) H 05/13/22 19:22 Urine Glucose (UA) Negative (Negative) 05/13/22 19:22 Urine Ketones 2+ (Negative) H 05/13/22 19:22 Urine Blood Negative (Negative) 05/13/22 19:22 Urine Nitrite Negative (Negative) 05/13/22 19:22 Urine Bilirubin 1+ (Negative) H 05/13/22 19:22 Urine Urobilinogen Negative (Negative) 05/13/22 19:22 Ur Leukocyte Esterase Negative (Negative) 05/13/22 19:22 Urine WBC (Auto) 1-5 /hpf (0-5) 05/13/22 19:22 Urine RBC (Auto) 0-4 /hpf (0-4) 05/13/22 19:22 U Hyaline Cast (Auto) 1-5 /lpf (0-5) 05/13/22 19:22 U Epithel Cells (Auto) 10-20 /lpf (0-5) H 05/13/22 19:22 Urine Bacteria (Auto) Negative (Negative) 05/13/22 19:22 Salicylates < 3.0 mg/dl (3.0-30) L 05/13/22 17:58 Urine Opiates Screen Neg (Neg) 05/13/22 19:22 Ur Methadone, Qual Neg (Neg) 05/13/22 19:22 Acetaminophen < 3 ug/ml (10-30) L 05/13/22 17:58 Urine Barbiturates Neg (Neg) 05/13/22 19:22 Ur Phencyclidine (PCP) Neg (Neg) 05/13/22 19:22 U Amphetamin/Meth Scrn Neg (Neg) 05/13/22 19:22 MDMA (Ecstasy) Screen Neg (Neg) 05/13/22 19:22 U Benzodiazepines Scrn Neg (Neg) 05/13/22 19:22 Ur Cocaine Metabolite Neg (Neg) 05/13/22 19:22 U Marijuana (THC) Screen Neg (Neg) 05/13/22 19:22 Ethyl Alcohol mg/dL < 10.0 mg/dl (<10.0) 05/13/22 17:58 SARS-CoV-2, RNA, NAAT NEGATIVE (NEGATIVE) 05/13/22 18:00 Impressions Chest X-Ray 05/13/22 17:45 XR chest 1V portable CLINICAL HISTORY: ams TECHNIQUE: Single frontal radiograph of the chest was obtained. Comparison: None available at the time of this dictation. FINDINGS: No lines and tubes are seen. The aorta is tortuous. The remainder of the cardiomediastinal silhouette is unremarkable. The lungs are clear. No evidence of pleural effusion or pneumothorax. IMPRESSION: No acute chest disease. ACT 112: Negative or not required by law. Electronically signed by: Roc Leggett M.D. 05/13/2022 6:[address] 05/13/22 17:45 CT head/brain wo con CLINICAL HISTORY: ams Technique: Contiguous axial CT images of the head were acquired from the base of the skull to the vertex without intravenous contrast administration. Images were viewed in brain, subdural and bone windows. Automated dose lowering techniques and/or adjustment according to patient size were utilized for this exam. Comparison: None available at the time of this dictation. Findings: Areas of decreased attenuation are present in the periventricular and subcortical white matter bilaterally consistent with small vessel ischemic disea se. Generalized cerebral volume loss with commensurate enlargement of the ventricles, sulci, and cisterns is also present. Asymmetric enlargement of the left lateral ventricle occipital horn. The white matter changes may represent focal encephalomalacia from prior infarct. Imaged portions of the paranasal sinuses and mastoid air cells are clear. The orbits appear normal. There are no acute fractures of the calvaria or scalp swelling. Impression: No acute intracranial hemorrhage, no evidence of acute territorial infarction or other acute intracranial disease process. ACT 112: Negative or not required by law. Electronically signed by: Roc Leggett M.D. 05/13/2022 6:21 PM Head CTA 05/13/22 23:35 CR Exam(s): CTA HEAD With Contrast IV Amt: 114 ML OPTIRAY 320 EXAM: CT Angiography Head With Intravenous Contrast CLINICAL HISTORY: Reason for exam: cva?. TECHNIQUE: Axial computed tomographic angiography images of the head with intravenous contrast. Automated exposure control was utilized for the study. A dose lowering technique was utilized adhering to the principles of ALARA. MIP reconstructed images were created and reviewed. CONTRAST: Patient received 114 ML OPTIRAY 320 of IV contrast COMPARISON: No relevant prior studies available. FINDINGS: Right internal carotid artery: No acute findings. Intracranial segment is patent with no significant stenosis. No aneurysm. Right anterior cerebral artery: Unremarkable. No occlusion or significant stenosis. No aneurysm. Right middle cerebral artery: Unremarkable. No occlusion or significant stenosis. No aneurysm. Right posterior cerebral artery: Unremarkable. No occlusion or significant stenosis. No aneurysm. Right vertebral artery: Unremarkable as visualized. Left internal carotid artery: The left internal carotid artery demonstrates atherosclerotic changes without high-grade stenosis or occlusion. No aneurysm. Left anterior cerebral artery: Unremarkable. No occlusion or significant stenosis. No aneurysm. Left middle cerebral artery: There is an abrupt cut off of the distal left M1 segment (series 3; image 82 and series 300; image 31). There is reconstitution of several proximal M2 branches. However, there is asymmetric decreased perfusion to the left MCA territory. No aneurysm. Left posterior cerebral artery: Unremarkable. No occlusion or significant stenosis. No aneurysm. Left vertebral artery: Unremarkable as visualized. Basilar artery: Unremarkable. No occlusion or significant stenosis. No aneurysm. Dural sinuses/cerebral veins: The visualized dural sinuses are unremarkable. Bones/joints: The posterior left middle cervical territory in the left parietal region is slightly heterogeneous. No significant mass effect. Please see the noncontrast examination for further details. IMPRESSION: There is an abrupt cut off of the distal left M1 segment (series 3; image 82 and series 300; image 31). There is reconstitution of several proximal M2 branches. However, there is asymmetric decreased perfusion to the left MCA territory. Suspect embolic thrombus to the distal left M1 segment. Communications: Call Doctor Acute arterial occlusion/ critical stenosis Electronically signed by: Carson Haynes MD 05/14/22 02:11 AM Neck CTA 05/13/22 23:35 Exam(s): CTA NECK With Contrast IV Amt: 114 ml optiray 320 EXAM: CT Angiography Neck With Intravenous Contrast CLINICAL HISTORY: Reason for exam: cva?. TECHNIQUE: Routine carotid CT angiography protocol was performed with intravenous contrast. NASCET criteria using the distal ICAs for comparison were used for evaluation of stenoses. Automated exposure control was utilized for the study. A dose lowering technique was utilized adhering to the principles of ALARA. MIP reconstructed images were created and reviewed. CONTRAST: Patient received 114 ml optiray 320 of IV contrast COMPARISON: None. FINDINGS: VASCULATURE: Right common carotid artery: Intimal hyperplasia of the right common carotid artery without focal stenosis, dissection or occlusion. Right internal carotid artery: Atherosclerotic changes of the proximal right internal carotid artery, extending to the carotid bifurcation. No significant stenosis. The mid to distal internal carotid artery is patent. No dissection. Right external carotid artery: Unremarkable. No occlusion. Right vertebral artery: Approximately 50% ostial stenosis. No occlusion or significant stenosis. No dissection. Left common carotid artery: Intimal hyperplasia of the left common carotid artery without focal stenosis, dissection or occlusion. Left internal carotid artery: Athetotic calcification of the proximal left internal carotid artery, extending to the carotid bifurcation. No stenosis by NASCET criteria. The mid to distal left internal carotid artery is patent. No dissection. Left external carotid artery: Unremarkable. No occlusion. Left vertebral artery: Unremarkable. No occlusion or significant stenosis. No dissection. Brachiocephalic and subclavian arteries: There is a normal branching pattern of the proximal great vessels which are patent without significant ostial stenosis. Aorta: Athetotic calcification of the aortic arch. No dissection or aneurysm. NECK: Bones/joints: Degenerative changes of the cervical spine. No acute osseous abnormality. Soft tissues: Unremarkable. Lung apices: The lung apices demonstrate no significant acute abnormality. CAROTID STENOSIS REFERENCE USING NASCET CRITERIA: % ICA stenosis = (1 - narrowest ICA diameter/diameter of distal cervical ICA) x 100. Mild - <50% stenosis. Moderate - 50-69% stenosis. Severe - 70-94% stenosis. Near occlusion - 95-99% stenosis. Occluded - 100% stenosis. IMPRESSION: 1. Atherosclerotic calcification of the carotid bifurcations bilaterally without stenosis by NASCET criteria. The common and internal carotid arteries are otherwise unremarkable bilaterally. 2. Mild to moderate ostial stenosis of the right vertebral artery. The vertebral arteries are otherwise patent bilaterally. Electronically signed by: Carson Haynes MD 05/14/22 02:17 AM Ordered Studies 05/13/22 17:45 CT head/brain wo con Stat 05/13/22 23:35 CT angio head w con Routine CT angio neck with con Routine MR brain wo/w con Routine Hospital Course (1) Altered mental status: Plan 67M with unknown medical problems was brought in evening of 05/13/22 by friend because of confusion. Friend did not see him for a week and half days. Initial workup with labs and ct head without contrast were ok. But CTA head showing : Suspect embolic thrombus to the distal left M1 segment. Spoke with [facility] and after discussing with Vascular surgery was accepted in Transfer to [facility].. Called Patient's Brother Mr. CochranBenjamin and updated the status and brother was ok for transfer. Brothers ph no: [phone]. Friend name: Clarence Berger ph no: [phone] A/p from [facility]. This 67-year-old male was brought in by Friend because of confusion. 1. Confusion Obeys simple commands, but otherwise speaking tangentially in low volumes. Blood pressure is somewhat high. Does not know what medications he is on, what kind of medications he takes. He lives alone, was found confused by his friend. Does not have family except for the sister, whom the friend does not know where she lives and a friend is trying to contact his mother, who is 90-year-old. Except for blood pressure running high, labs are all unremarkable. CT head unremarkable. Chest x-ray unremarkable. Drug screen is unremarkable. Carboxyhemoglobin levels are 2.6 ABG is okay. Ammonia level okay. As per friend, there is no smoking, alcohol, or drug use. , we will do stroke workup with MRI scan, CT angio of the head and neck, echocardiogram, speech evaluation, neuro evaluation in the a.m. We will give a dose of thiamine. We will check also vitamin B12, thiamine levels and folic acid levels and RPR levels. We will also do EEG.Will get lipid profile and hba1c levels. Closely monitor in tele floor. N.p.o. except meds until seen by speech. IV fluids. Await neuro input. 2. Hypertension: Does not know whether he has a history of hypertension or what kind of medications he is taking on. We will place on IV labetalol 10 mg q.4h. p.r.n. for systolic blood pressure greater than 180, with holding parameters. And monitor BP. 3. Deep venous thrombosis prophylaxis: Sequential compression devices for now. DISPOSITION: Closely monitor in tele floor. We will keep him at full code for now. Total Time Total Time Spent Total Time Spent (In Minutes): 45minutes Discharge Plan Discharge Items Patient Disposition: Transfer Acute Care Hospital Reason For Visit: CONFUSION Discharge Diagnosis: Possible thrombus in distal Left M1 segment(left MCA territory) Activity: As commented below Activity Comment: as per Maliha Non-emergency contact: Primary Care Provider Call non-emergency contact if: you have any medication questions and your symptoms worsen Follow-up/Referrals: PCP,NO [Primary Care Provider] - Diet: Nothing by Mouth Addtl Attending Provider Instructions: Unknown medical hx iv labetalol 10mg q 4hrs PEN SBP > 180. Hold for HR < 60. Pending Studies at Discharge: No Stand-Alone Forms: My [facility] [email or web address] Skilled Items Patient informed of condition?: No DNR: No Discharge Level of Care: Other Communicable Disease: No Discharge Prognosis: Other Lines: Peripheral IV Urinary Catheter: No Medications and DC Order Prescriptions: No Action No Known Home Medications Discharge Orders: Discharge Order (Routine); Ordered 05/14/22 Ordered By: Jerad Connor Admission Data Admit Date/Time: 05/13/22 20:54 Attending Provider: Jerad Connor Admit Provider: Jerad Connor Primary Care Provider: PCP,NO Other Providers: Jerad Connor ; David Herbert ; Geovani Chase Yuliya D. ; Mari Smith ; Kym Kyle ; Bahman Cohn ; Kym Peters ; Patrick Bains ; Joyce Hardy ; Simba Prakash ; Cherelle Leyva ; Pepper Graves ; Bahman Acosta ; Estevan Chew
[2022-05-14] MEDS ORDERED: Patient's ALLERGY Info needs ENTERED SCH (08:00)
--- NOTE | 2022-05-14 11:36 | Electrocardiogram Report ---
Test Reason : Blood Pressure : / mmHG Vent. Rate : 073 BPM Atrial Rate : 073 BPM P-R Int : 174 ms QRS Dur : 088 ms QT Int : 420 ms P-R-T Axes : -08 [phone] degrees QTc Int : 462 ms Suspect arm lead reversal, interpretation assumes no reversal Normal sinus rhythm Poor R wave progression, consider anterior GA vs. lead placement vs. LVH Abnormal ECG No previous ECGs available Confirmed by Justin Contreras ([id number]) on 05/14/2022 11:35:46 AM Referred By: REFERRED SELF Confirmed By:Justin Contreras
== END 2022-05-14 05:13 | disposition short-term general hospital (02) | DRG 948 ==
LOC: EDBD → ED 17:34 → EDINP 20:54
DX: R41.0 Disorientation, unspecified